=== PATIENT | male | born 1940 | race Caucasian/White ===

== ENCOUNTER 2018-11-21 10:28 | Day surgery (SDC) | payer OTHER ==
[2018-11-20 11:55] VITALS: BMI 24.7
[2018-11-21] MEDS ORDERED: Sodium Chloride 0.9% 10 ML ONE (10:57)
[2018-11-21] MEDS ORDERED: Thrombin 5000 UNITS/5 ML VIAL ONE (10:57)
[2018-11-21] MEDS ORDERED: Fentanyl 100 MCG/2 ML VIAL ONE ×2 (13:15→16:55)
[2018-11-21] MEDS ORDERED: Albumin 5% 500 ML ONE (14:17)
[2018-11-21] MEDS ORDERED: Glycopyrrolate 0.2 MG/ML 5 ML SYRINGE ONE ×2 (14:50)
[2018-11-21] MEDS ORDERED: PROPOFOL 200 MG/20 ML VIAL ONE (14:50)
[2018-11-21] MEDS ORDERED: Dexamethasone 20 MG/5 ML VIAL ONE (14:50)
[2018-11-21] MEDS ORDERED: Ondansetron PF 4 MG/2 ML Vial ONE (14:50)
[2018-11-21] MEDS ORDERED: Rocuronium Bromide 10 MG/ML (10ML VIAL) ONE (14:50)
[2018-11-21] MEDS ORDERED: Ketorolac Tromethamine 30 MG/ML VIAL ONE (14:50)
[2018-11-21] MEDS ORDERED: PHENYLEPHRINE-NS 100 MCG/ML 10 ML SYRINGE ONE (14:50)
[2018-11-21] MEDS ORDERED: Lidocaine 1% PF 5 ML VIAL ONE (14:50)
[2018-11-21] MEDS ORDERED: Promethazine HCl 25 MG/ML VIAL SLOW IVP PRN (15:28)
[2018-11-21] MEDS ORDERED: PACU-Morphine 4MG/ML VIAL SLOW IVP PRN (15:28)
[2018-11-21] MEDS ORDERED: Morphine Sulfate 2 MG/ML SYRINGE SLOW IVP PRN (15:28)
[2018-11-21] MEDS ORDERED: Promethazine HCl 25 MG/ML VIAL IM PRN (15:28)
[2018-11-21] MEDS ORDERED: Ondansetron HCl/PF 4 MG/2 ML Vial IVP PRN (15:28)
[2018-11-21] MEDS ORDERED: HYDROmorphone 2 MG/ML VIAL SLOW IVP PRN (15:28)
[2018-11-21] MEDS ORDERED: Acetaminophen 325 MG TAB PO PRN (16:49)
[2018-11-21] MEDS ORDERED: Fleet Enema 133 ML BOT PR PRN (16:49)
[2018-11-21] MEDS ORDERED: Mag-Al 1200 mg/1200 mg/30 ML UDCUP PO PRN (16:49)
[2018-11-21] MEDS ORDERED: Acetaminophen/Codeine 30-300mg Tablet PO PRN (16:49)
[2018-11-21] MEDS ORDERED: Bisacodyl 10 MG SUPP PR PRN (16:49)
[2018-11-21] MEDS ORDERED: Ondansetron PF 4 MG/2 ML Vial IVP PRN (16:49)
[2018-11-21] MEDS ORDERED: Acetaminophen 1,000 MG in Premix Bag 1 BAG IVPB PRN (16:56)
[2018-11-21] MEDS: HYDROcodone/Acetaminophen 7.5/325 mg Tablet PO PRN ×2 (20:27→23:55)
[2018-11-21] MEDS: Gabapentin 300 MG CAP PO SCH (20:27)
[2018-11-21] MEDS: Sodium Chloride 0.9% 1,000 ML IV SCH (20:28)
[2018-11-21] MEDS: CEFAZOLIN 2 GM in Premix Bag 1 BAG IVPB SCH (20:28)
[2018-11-21] MEDS: Morphine 2 MG/ML SYRINGE SLOW IVP PRN (20:33)
[2018-11-22] MEDS: HYDROcodone/Acetaminophen 7.5/325 mg Tablet PO PRN ×3 (03:56→12:38)
[2018-11-22] MEDS: CEFAZOLIN 2 GM in Premix Bag 1 BAG IVPB SCH ×2 (03:57→06:13)
[2018-11-22] MEDS: Sodium Chloride 0.9% 1,000 ML IV SCH ×2 (07:42→21:23)
[2018-11-22] MEDS: Rosuvastatin 20 MG TAB PO SCH (08:35)
[2018-11-22] MEDS: Gabapentin 300 MG CAP PO SCH ×2 (08:35→21:06)
[2018-11-22] MEDS: Tamsulosin HCl 0.4 MG CAP PO SCH (08:35)
[2018-11-22] MEDS: Ubidecarenone 50 MG CAP PO SCH (08:35)
[2018-11-22] MEDS: Calcium Carbonate + Vit D 1 TAB PO SCH (08:35)
[2018-11-22] MEDS: Lisinopril 20 MG TAB PO SCH (08:45)
[2018-11-22] MEDS: Amlodipine 10 MG TAB PO SCH (08:45)
[2018-11-22] MEDS: Atenolol 50 MG TAB PO SCH (08:45)
--- NOTE | 2018-11-22 10:16 | PRG ---
DATE OF SERVICE: 11/22/2018 Mr. Burks is postoperative day #1 from L2 through L5 laminectomy, partial facetectomy, and foraminotomies. He is doing very well with improvement in his leg pain and good strength. He also has noticed, however, urinary retention. He was able to void 500 mL, but had 850 mL that was symptomatic with lower abdominal pain. He is undergoing in and out catheterization now. We will work on mobilization before he is dismissed. We will need to see that he is spontaneously voiding in acceptable fashion. Job ID: [id number]
[2018-11-22] MEDS: Milk Of Magnesia 30 ML UDCUP PO PRN (11:59)
[2018-11-22] MEDS ORDERED: CEFAZOLIN 2 GM in Premix Bag 1 BAG IVPB SCH (12:00)
[2018-11-22] MEDS: tiZANidine HCl 4 MG TAB PO PRN ×2 (12:38→21:06)
[2018-11-22] MEDS: Morphine 2 MG/ML SYRINGE SLOW IVP PRN ×2 (14:47→21:18)
--- NOTE | 2018-11-22 16:09 | OP ---
DATE OF PROCEDURE: 11/21/2018 BURGLAR ALARM INSTALLER: Nils Sauer PA-C. PREPROCEDURE DIAGNOSIS: Multilevel lumbar stenosis with prior lumbosacral decompression and fusion. POSTPROCEDURE DIAGNOSIS: Multilevel lumbar stenosis with prior lumbosacral decompression and fusion. PROCEDURES PERFORMED: L2-L3, L3-L4, L4-L5 laminectomies, partial facetectomies, foraminotomies. DESCRIPTION OF PROCEDURE: After informed consent was obtained from the patient, the patient was brought to the OR. Proper patient, pause, and identification were carried out. He was placed under excellent endotracheal anesthesia and positioned prone on the OR table. All appropriate points were padded. We identified the L2, L3, L4 dorsal spines. The L5 dorsal spine was surgically absent. We then incorporated a linear incision into portion of the prior incision and following sterile cleansing, preparation, and draping this, the wound was opened and the L2, L3, L4 dorsal spines and lamina were exposed along with the scarred area of L5. Localization film confirmed area of interest. We then performed L2, L3, L4, L5 laminectomies, partial facetectomies and foraminotomies with excellent decompression of the common dural tube and nerve roots. We were satisfied with our decompression. Hemostasis was maximized throughout as was copious irrigation occurred. The wound was then closed in anatomic layers following the sprinkle of vancomycin powder. There was no spinal fluid leak. Job ID: [id number]
[2018-11-22] MEDS: traMADol HCl 50 MG TAB PO PRN (16:16)
[2018-11-22] MEDS: Acetaminophen 1,000 MG in Premix Bag 1 BAG IVPB SCH (17:16)
[2018-11-23] MEDS: traMADol HCl 50 MG TAB PO PRN
[2018-11-23] MEDS: Acetaminophen 1,000 MG in Premix Bag 1 BAG IVPB SCH ×2 (00:06→06:30)
[2018-11-23] MEDS: Morphine 2 MG/ML SYRINGE SLOW IVP PRN (04:47)
[2018-11-23] MEDS: tiZANidine HCl 4 MG TAB PO PRN (05:16)
[2018-11-23] MEDS: Sodium Chloride 0.9% 1,000 ML IV SCH ×2 (09:20→19:18)
[2018-11-23] MEDS: Ubidecarenone 50 MG CAP PO SCH (09:21)
[2018-11-23] MEDS: Rosuvastatin 20 MG TAB PO SCH (09:21)
[2018-11-23] MEDS: Gabapentin 300 MG CAP PO SCH ×3 (09:21→21:09)
[2018-11-23] MEDS: Calcium Carbonate + Vit D 1 TAB PO SCH (09:21)
[2018-11-23] MEDS: Tamsulosin HCl 0.4 MG CAP PO SCH (09:21)
[2018-11-23] MEDS: Amlodipine 10 MG TAB PO SCH (09:22)
[2018-11-23] MEDS: Atenolol 50 MG TAB PO SCH (09:22)
[2018-11-23] MEDS: Lisinopril 20 MG TAB PO SCH (09:23)
[2018-11-23 10:55] LABS: #Eosinphils 0.1 thou/uL (0.0-0.7); #Lymphocytes 1.6 thou/uL (1.20-3.40); #Monocytes 1.1 thou/uL (0.11-0.59); #Neutrophils 5.8 thou/uL (1.40-6.50); %Basophils 0.2 % (0.0-1.0); %Eosinophils 0.7 % (0.0-10.0); %Lymphocytes 18.8 % (21.0-51.0); %Monocytes 12.9 % (0.0-10.0); %Neutrophils 67.4 % (42.0-75.0); Hemoglobin 10.3 g/dL (14.0-18.0); MDiff Complete? YES; Mean Corpuscular HGB CONC 33.3 g/dL (32.0-36.0); Mean Corpuscular Hemoglobin 30.5 pg (27.0-31.0); Mean Corpuscular Volume 91.4 fL (78.0-98.0); Mean Platelet Volume 7.4 fL (7.4-10.4); Platelet Count 114 thou/uL (130-400); Platelet Morphology Comment Appears Decreased; RBC Distribution Width 12.3 % (11.5-14.5); Red Blood Cell (RBC) Count 3.38 mill/uL (4.70-6.10); White Blood Cell (WBC) Count 8.7 thou/uL (4.8-10.8)
[2018-11-23 11:04] LABS: Anion Gap 9 mmol/L (10-20); BUN (Urea Nitrogen) 20 mg/dL (8.4-25.7); Calc. Creatinine Clearance 77 mL/min (70-130); Calcium 8.2 mg/dL (7.8-10.44); Carbon Dioxide 27 mmol/L (23-31); Chloride 102 mmol/L (98-107); Estimated GFR-MDRD 77; Glucose 134 mg/dL (83-110); Potassium 3.6 mmol/L (3.5-5.1); Sodium 134 mmol/L (136-145)
[2018-11-23] MEDS ORDERED: Dexamethasone 6 MG in Sodium Chloride 0.9% 50 ML IVPB SCH (11:51)
--- NOTE | 2018-11-23 12:18 | PRG ---
DATE OF SERVICE: 11/23/2018 Mr. Burks is postoperative day #2 from multilevel lumbar laminectomy. He had postoperative urinary retention that required in and out catheterization. He now has an indwelling Sutherland catheter as he had a PVR of 850 mL. I have spoken with Dr. Carmona, and he will see the patient later this week in clinic to consider removal of the Sutherland catheter. He is intact neurologically, but has had some radiculitis as such we will initiate Decadron 6 mg once, and we will also add another dose of gabapentin to make his total dose 300 mg three times daily. Physical Therapy is coming to see him now, and I anticipate another 24 hours in the hospital. I should note his blood pressure has been 96/60, which certainly is related to medication and also the fact he is on beta lenard. We have also re-initiated IV fluids; however, our medical colleagues checking on him. Job ID: [id number]
[2018-11-23] MEDS: Acetaminophen 500 MG TAB PO SCH ×3 (12:24→23:52)
[2018-11-23] MEDS ORDERED: CONFIRM ALL DAY 1 DOSES ARE TIMED FOR DAY 1 FS SCH (12:30)
[2018-11-23] MEDS: methylPREDNISolone 4 mg Tablet PO SCH ×3 (12:48→21:09)
[2018-11-23] MEDS ORDERED: Acetaminophen/Codeine 30-300mg Tablet PO PRN (15:00)
[2018-11-23] MEDS ORDERED: methylPREDNISolone 4 mg Tablet PO SCH (17:00)
[2018-11-23] MEDS: Milk Of Magnesia 30 ML UDCUP PO PRN (21:10)
[2018-11-24] MEDS: Acetaminophen 500 MG TAB PO SCH (05:52)
[2018-11-24] MEDS ORDERED: methylPREDNISolone 4 mg Tablet PO SCH ×2 (08:00→21:00)
[2018-11-24 08:17] VITALS: BP 131/71; TEMP 98.6
[2018-11-24] MEDS: Calcium Carbonate + Vit D 1 TAB PO SCH (08:31)
[2018-11-24] MEDS: Ubidecarenone 50 MG CAP PO SCH (08:31)
[2018-11-24] MEDS: Tamsulosin HCl 0.4 MG CAP PO SCH (08:32)
[2018-11-24] MEDS: Rosuvastatin 20 MG TAB PO SCH (08:32)
[2018-11-24] MEDS: Gabapentin 300 MG CAP PO SCH (08:32)
--- NOTE | 2018-11-24 10:37 | PDOC.HOSPP ---
- Subjective Encounter Date: 11/24/18 Subjective: Pt seen feeling better , Denies headache dizziness , BP improved - Objective Vital Signs & Weight: Vital Signs (12 hours) Temp Pulse Resp BP Pulse Ox 11/24/18 08:50 95 11/24/18 08:16 98.6 F 69 20 131/71 95 11/24/18 03:34 98.2 F 74 16 143/64 H 94 L 11/23/18 23:52 98.1 F 80 16 147/70 H 92 L Weight Weight 188 lb I&O: 11/23/18 11/24/18 11/25/18 06:59 06:59 06:59 Intake Total 1680 2950 Output Total 1425 4100 Balance 255 -1150 Result Diagrams: 11/23/18 10:33 11/23/18 10:33 Hospitalist ROS - Review of Systems Constitutional: denies: fever Eyes: denies: pain ENT: denies: ear pain Respiratory: denies: cough Gastrointestinal: denies: nausea Genitourinary: reports: other (mandujano catheter) Musculoskeletal: reports: back pain (better) Neurological: denies: weakness - Medication Medications: Active Medications Generic Name Dose Route Start Last Admin Trade Name Freq PRN Reason Stop Dose Admin Acetaminophen 650 mg 11/24/18 12:00 11/23/18 19:16 Tylenol PO 650 mg Q4H PRN Administration Headache/Fever/Mild Pain (1-3) Al Hydroxide/Mg Hydroxide 30 ml 11/21/18 16:49 11/22/18 21:07 Maalox PO 30 ml Q4H PRN Administration Indigestion Calcium/Vitamin D 1 tab 11/22/18 09:00 11/24/18 08:31 Caltrate 600 + Vit D PO 1 tab DAILY LEVAR Administration Coenzyme Q10 100 mg 11/22/18 09:00 11/24/18 08:31 Coenzyme Q10 PO 100 mg DAILY LEVAR Administration Gabapentin 300 mg 11/23/18 15:00 11/24/18 08:32 Neurontin PO 300 mg TID LEVAR Administration Sodium Chloride 1,000 mls @ 75 mls/hr 11/21/18 17:00 11/23/18 19:18 Normal Saline 0.9% IV 1,000 mls .[id number] LEVAR Administration Magnesium Hydroxide 30 ml 11/21/18 16:49 11/23/18 21:10 Milk Of Magnesium PO 30 ml Q12H PRN Administration Constipation Methylprednisolone 4 mg 11/24/18 08:00 11/24/18 08:32 Medrol PO 11/24/18 18:01 4 mg 0800,1300,1800 LEVAR Administration Pantoprazole Sodium 40 mg 11/24/18 09:00 11/24/18 08:32 Protonix PO 40 mg DAILY LEVAR Administration Rosuvastatin Calcium 40 mg 11/22/18 09:00 11/24/18 08:32 Crestor PO 40 mg DAILY LEVAR Administration Tamsulosin HCl 0.4 mg 11/22/18 09:00 11/24/18 08:32 Flomax PO 0.4 mg DAILY LEVAR Administration - Exam General Appearance: awake alert Eye: anicteric sclera ENT: normocephalic atraumatic Neck: supple Heart: no murmur Respiratory: no wheezes Gastrointestinal: soft Extremities: no cyanosis Skin: normal turgor Neurological: cranial nerve grossly intact Musculoskeletal: normal tone Psychiatric: normal affect Hosp A/P - Plan s/p Multiple level Lumber Laminectomy feeling better pain better Hypertension most likely pain meds induced improved , start BP meds on dc Acute urinary retension s/p mandujano placement Continue mandujano catheter , flomax DVT/GI prophylaxis Pt medically can be d/c home and advised to f/u pcp and surgery
[2018-11-24] MEDS: Sodium Chloride 0.9% 1,000 ML IV SCH (11:28)
[2018-11-24] MEDS ORDERED: Acetaminophen 325 MG TAB PO PRN (12:00)
--- NOTE | 2018-11-24 12:17 | PRG ---
DATE OF SERVICE: 11/24/2018 Mr. Burks is now three days out from his surgery. He is doing well. He has hematuria, but he has an indwelling Sutherland catheter. His leg pain is much improved. His wound is healing well and he has excellent strength. He is already ambulating. We went over do's and don'ts in the postoperative period with both he and his daughter. Follow up with Dr. Carmona later this week regarding voiding trial that will likely occur. Job ID: [id number]
--- NOTE | 2018-11-24 12:29 | PRG ---
DATE OF SERVICE: 11/24/2018 SUBJECTIVE: The patient states that he is feeling fine. He has no bladder spasms or complaints regarding his catheter. OBJECTIVE: VITAL SIGNS: Stable and afebrile. GENERAL: No apparent distress. Communicative and alert. CARDIOVASCULAR: Regular rate and rhythm. ABDOMEN: Soft, nontender, and nondistended. : Sutherland catheter in place with minimally bloody urine, which is translucent. No clots. EXTREMITIES: No clubbing, cyanosis, or edema. ASSESSMENT AND PLAN: A 77-year-old white male with urinary retention with some catheter-related trauma and resultant hematuria, which is improving. Given the patient's urinary retention and recent spine surgery, would recommend discharging him home with Sutherland catheter to leg bag and gravity bag. I have given him instructions on how to use both. He is also getting teaching by the nursing staff. He should follow up with me towards the middle to latter part of next week, where we can have him undergo a void trial. He should remain on his Flomax. He will have the best chance of voiding on his own, if he remains on Flomax. Undergoes physical therapy to regain his strength. Avoid constipation, and minimize his narcotic pain medication usage. I will handle his followup care on an outpatient basis thereafter. Job ID: [id number]
--- NOTE | 2018-11-24 17:16 | EKG ---
Test Reason : PREOP Blood Pressure : / mmHG Vent. Rate : 060 BPM Atrial Rate : 060 BPM P-R Int : 156 ms QRS Dur : 092 ms QT Int : 434 ms P-R-T Axes : 058 057 020 degrees QTc Int : 434 ms Normal sinus rhythm Normal ECG No previous ECGs available Confirmed by MARYURI VERA (2) on 11/24/2018 5:15:52 PM Referred By: KHOA Confirmed By:MARYURI VERA
[2018-11-25] MEDS ORDERED: methylPREDNISolone 4 mg Tablet PO SCH (08:00)
--- NOTE | 2018-11-25 08:16 | CON ---
DATE OF CONSULTATION: 11/23/2018 CONSULTING PHYSICIAN: Russ Schmidt MD REASON FOR CONSULTATION: Gross hematuria with urinary retention. HISTORY OF PRESENT ILLNESS: Mr. Burks is a 77-year-old white male, who recently underwent an L2 to L5 laminectomy. Postoperatively, he had difficulty urinating and subsequently was found to have a PVR of over 850 mL. After voiding approximately 4 to 500 mL, he progressively lost his ability to urinate and started to have undergo in and out catheterizations. The nursing staff found it increasingly more difficult to catheterize the patient and started getting hematuria back. At that point, an indwelling 16-Trinidadian Sutherland catheter was left in and I was consulted for the patient's hematuria as well as his urinary retention. On my discussion with the patient, he states that he does have a history of BPH. This is managed by a urologist in [place] at the [facility]. He is currently taking terazosin, although he is on Flomax currently while in the hospital. He states that with the terazosin, he is able to urinate to his satisfaction, although it is not like he used to urinate previously. He has not had any UTIs or previous hematuria. He denies any previous urologic surgeries other than 2 prior biopsies, which he reports are negative, done for elevated PSA in the past. ALLERGIES: NONE. HOME MEDICATIONS: 1. Atenolol. 2. Calcium. 3. Felodipine. 4. Neurontin. 5. Lidocaine patch. 6. Lisinopril. 7. Loratadine. 8. Methocarbamol. 9. Ranitidine. 10. Rosuvastatin. 11. Sucralfate. 12. Tamsulosin. 13. Venlafaxine. PAST MEDICAL HISTORY: 1. BPH. 2. Gastroesophageal reflux disease. 3. Hyperlipidemia. 4. Hypertension. 5. Chronic back pain with neuropathy. PAST SURGICAL HISTORY: 1. Two prior spine surgeries. 2. Prostate biopsies. FAMILY HISTORY: Noncontributory. SOCIAL HISTORY: The patient lives in [place], but is currently visiting his daughter, who lives in [place], who is taking care of him in the interim until he can return back to [place]. He denies any alcohol abuse or illicit drug use. REVIEW OF SYSTEMS: A 12-point review of systems were reviewed and negative other than what was commented on the HPI and reported below. The patient is currently reporting significant weakness and lower back and extremity pain secondary to his recent surgery. He denies any chest pain or shortness of breath. He is only having mild prostatic discomfort. PHYSICAL EXAMINATION: VITAL SIGNS: Temperature 97.6, pulse 66, respirations 16, blood pressure 96/49, and saturation 92% on room air. GENERAL: No apparent distress. Appears a little uncomfortable, but as well as communicative and alert. Well nourished, well developed, appears stated age. Overweight. HEENT: Normocephalic, atraumatic. Pupils are symmetric and round. Sclerae are nonicteric. Moist mucous membranes. NECK: Trachea midline. CARDIOVASCULAR: Regular rate and rhythm. Normal S1 and S2. Symmetric pulses. CHEST: No increased work of breathing. Symmetric expansion of the lungs, clear anteriorly. ABDOMEN: Soft, nontender, and nondistended. Positive bowel sounds. No organomegaly, rebound, guarding, or masses. GENITOURINARY: Sutherland catheter in place secured with StatLock with a translucent maroonish-red color urine without clots. A 16-Trinidadian Sutherland catheter in place. Penis otherwise nonfocal. Testes are bilaterally descended. RECTAL: Deferred. EXTREMITIES: No clubbing, cyanosis, or edema. MUSCULOSKELETAL: No obvious joint deformities or joint erythema noted other than what is on the spine from prior surgery. Range of motion was not fully tested. NEUROLOGIC: Cranial nerves II through XII appear grossly intact. The patient does have some lower extremity weakness, although this was not fully tested as I am not sure what he is allowed to be permitted to do given his recent spine surgery. SKIN: Warm and dry. Good turgor. No rashes or lesions. PSYCHIATRIC: Alert and oriented x3. Appropriate mood and affect. LYMPHATIC: No enlarged lymph nodes in the cervical, supraclavicular, or inguinal areas. LABORATORY EVALUATION: The full set of labs are in the [facility], which I have reviewed. Of note, there are no current labs except hemoglobin of 10.3 and white count of 8.7, . ASSESSMENT AND PLAN: A 77-year-old white male with urethral and prostatic trauma secondary to catheters with current urinary retention, most likely secondary to benign prostatic hyperplasia and exacerbated by bladder weakness from recent spine surgery plus narcotic use, generalized weakness, and possible constipation. At the current time, I would recommend keeping his indwelling catheter in for at least 1 week to allow his bladder to rest as well as the hematuria to clear up. Once he has regained some more strength in his lower extremities, he is able to walk better, is off most of his pain medications and has had some time for the prostatic inflammation to settle down. We can perform a void trial. If he is still in the hospital next week, we can do the void trial while in the hospital, but if he is ready to be discharged from a neurosurgical standpoint and he can simply follow up with me as an outpatient since he will be in the area for the next 2 weeks and we can see him next week in the office for a voiding trial. I did have a discussion with the patient about being more aggressive about his BPH treatment in the future since he did have postoperative urinary retention. This does signify that he has more significant benign prostatic hyperplasia than what he perceives. His options either to increase medical therapy versus consider procedural-based treatment such as UroLift. He has a lot of interest in UroLift and I told him we can discuss this more as an outpatient. SUMMARY OF RECOMMENDATIONS: 1. Continue Sutherland catheter for 7 days. 2. Continue Flomax. 3. The patient will have increased chance of voiding once his hematuria is cleared. He has had a catheter in for about 1 week. Minimize narcotic usage. Increase generalized strength and walking and is having good bowel movements. Job ID: [id number]
--- NOTE | 2018-11-25 08:29 | CON ---
DATE OF CONSULTATION: REASON FOR CONSULTATION: Medical management and low blood pressure. HISTORY OF PRESENT ILLNESS: The patient with past medical history of hypertension, his usual blood pressure as per patient is 120s to 130s. The patient is status post day 2 from multilevel lumbar laminectomy. The patient being on pain medications and was complaining of mild light headache, also been complaining of back pain with pain radiating to his leg. The patient otherwise denies any chest pain or lightheadedness, dizziness, shortness of breath, palpitation, nausea, vomiting, diarrhea, complaints of mild constipation, had bowel movement 2 days ago, also had urinary retention and placed Sutherland catheter. The patient's pain medication has been held this morning, and the patient currently blood pressure is 116/65. No distress. SYSTEMIC REVIEW: As mentioned above. PAST MEDICAL HISTORY: As mentioned above. PAST SURGICAL HISTORY: History of L2 through L5 laminectomy, partial facetectomy, and foraminotomies. SOCIAL HISTORY: Denies smoking, alcohol abuse, or drug abuse. ALLERGIES: NKDA. CURRENT MEDICATIONS: 1. Tylenol. 2. Cefazolin. 3. Normal saline. 4. Tylenol. 5. Calcium carbonate. 6. Gabapentin. 7. Methylprednisone. 8. Pantoprazole. 9. Rosuvastatin. 10. Tamsulosin. 11. Ubidecarenone. 12. Bisacodyl. 13. Aluminium and magnesium hydroxide. PHYSICAL EXAMINATION: VITAL SIGNS: Temperature 97.5, pulse 69, respirations 16, oxygen saturation 92% on room air, and blood pressure 116/65. GENERAL: The patient is lying in bed comfortably, not in any distress. HEENT: Conjunctivae normal. Oral mucosa mildly dry. NECK: Supple. No JVD. No lymphadenopathy. CHEST: Decreased air entry bilateral lower lobe, no rhonchi. No wheezing. HEART: Sound normal. No murmur. No gallop. No rub. ABDOMEN: Soft, benign. No tenderness, no organomegaly. Dressing in place on back. EXTREMITIES: Peripheral pulses intact. LABORATORY DATA: CBC unremarkable except hemoglobin 10.3, white blood cells 8.7, and platelet 114. BMP unremarkable except glucose 134, sodium 134, anion gap 9, and calcium 8.2. IMPRESSION: 1. Borderline low blood pressure most likely pain medication induced. Blood pressure improved after holding the pain medications. Currently blood pressure 116/66. The patient in no distress. No lightheadedness or dizziness. The patient is currently on normal saline 75 mL per hour. Clinically, the patient looks mildly dehydrated. We will continue fluids 100 mL per hour. No evidence of sepsis or any chest pain. We will continue monitoring blood pressure with precaution of use of pain medication. 2. Recent L2 through L5 laminectomy, partial facetectomy, and foraminotomies. Continue postoperative management as per Surgery and precautions with use of pain medication. 3. Acute urinary retention, status post Sutherland catheter placement, on Flomax with history of benign prostatic hyperplasia. Continue Flomax daily and needs voiding trial before or post discharge with followup Urology. 4. Deep venous thrombosis and gastrointestinal prophylaxis. Plan discussed with the patient and nursing staff in detail. Job ID: [id number]
[2018-11-26] MEDS ORDERED: methylPREDNISolone 4 mg Tablet PO SCH (08:00)
[2018-11-27] MEDS ORDERED: methylPREDNISolone 4 mg Tablet PO SCH (08:00)
[2018-11-28] MEDS ORDERED: methylPREDNISolone 4 mg Tablet PO SCH (08:00)
== END 2018-11-24 11:38 | disposition home or self-care (01) ==
LOC: SDC 10:28 → SURG B 16:58 → SDC 11-24 11:38
PROVIDERS: ATTEND Surgery
PROC: 01NB0ZZ Release Lumbar Nerve, Open Approach (ICD-10-PCS; principal; 2018-11-24)
DX: M48.061 Spinal stenosis, lumbar region without neurogenic claudication (principal); M54.16 Radiculopathy, lumbar region; I10 Essential (primary) hypertension; N40.1 Benign prostatic hyperplasia with lower urinary tract symptoms; R33.8 Other retention of urine; R31.0 Gross hematuria; G89.29 Other chronic pain; M54.9 Dorsalgia, unspecified; E78.5 Hyperlipidemia, unspecified; Z79.899 Other long term (current) drug therapy
CPT/HCPCS: 36415; 76000; 80048; 85025; 93005; 93010; J0131; J0690; J1100; J1885; J2001; J2270; J2405; J2704; J3010; J3370; J3490; J7509; P9045